=== PATIENT | female | born 1980 | race Caucasian/White ===

== ENCOUNTER 2016-05-14 16:49 | Emergency (ER) | payer SELFPAY ==
--- NOTE | 2016-05-21 21:19 | ER ---
ADMIT: 05/14/2016 RM/LOC: ER [facility] MR#: [id number] [address] [id number] JOSEPH SOTO [address] [place] [address] Emergency Room Report SEX: F AGE: 35 : 1980 DATE: 05/14/2016 ADDENDUM: CHIEF COMPLAINT: Low back pain. HISTORY OF PRESENT ILLNESS: This is a 35-year-old female that used to work for [employer] She hurt her back about a year ago, has intermittent pain off and on. Usually, she says she does okay, but then she has episodes where it is very difficult for her walk. COURSE IN THE EMERGENCY ROOM: I am giving her Toradol and Valium. I am sending her home with just 8 of tramadol. She usually has this prescribed by Dr. Mckinley, but she only has 2 left, so I told her I just gave her enough to until she can get it refilled by Dr. Mckinley. CLINICAL IMPRESSION: Acute on chronic low back pain. REDDY Mae / Joseph Small MD / rita JOB #: [id number] CC: Joseph Small MD, Attending Physician Darnell Mckinley MD, Family Physician
== END 2016-05-14 18:30 | disposition home or self-care (01) ==
LOC: ER 16:49
DX: M54.5 Low back pain (principal); G89.29 Other chronic pain; J45.909 Unspecified asthma, uncomplicated; Z88.0 Allergy status to penicillin; Z88.1 Allergy status to other antibiotic agents; Z88.8 Allergy status to other drugs, medicaments and biological substances; Z79.899 Other long term (current) drug therapy

== ENCOUNTER 2016-07-24 09:08 | Day surgery (SDC) | payer BC, MEDICAID ==
--- NOTE | 2016-07-26 08:19 | OR ---
ADMIT: 07/24/2016 RM/LOC: [facility] MR#: [id number] [address] [address] ARRIETAMIKIE LAMBS [address] [place], [place] [id number] Operative/Delivery Room Report SEX: F AGE: 36 : 1980 SURGERY DATE: 07/24/2016 SURGEON: Luis Robb MD PREOPERATIVE DIAGNOSES: 1. Cervical spondylosis. 2. Chronic daily headaches. 3. Cervicalgia. POSTOPERATIVE DIAGNOSES: 1. Cervical spondylosis. 2. Chronic daily headaches. 3. Cervicalgia. OPERATION: Left C2, C3, C4, and C5 medial branch block. INDICATION FOR PROCEDURE: The patient is a pleasant female with history of chronic neck pain with headaches and shoulder pain secondary to above- mentioned diagnosis comes here for planned bilateral C2, C3, C4, and C5 cervical medial branch block. We did only left-sided medial branch block as the patient could not tolerate the procedure. ANESTHESIA: Local without sedation. ESTIMATED BLOOD LOSS: Zero. COMPLICATIONS: None. DESCRIPTION OF PROCEDURE: After the patient was seen in the preoperative area, vital signs were taken prior to procedure. The risks, benefits, and alternative therapies were discussed at length. The patient comes in, consent ADMIT: 07/24/2016 RM/LOC: [facility] MR#: [id number] [id number] [address] ARRIETAMIKIE LAMBS [address] [place] [address] Operative/Delivery Room Report SEX: F AGE: 36 : 1980 is obtained and updated. The patient was taken to the fluoroscopy suite and placed on the fluoroscopic table in the prone position. Pressure points were padded to comfort, monitor applied, and a timeout performed. The patient's jaw was turned to the right side. The patient was monitored throughout the procedure. The patient's cervical area was then prepped and draped in a sterile fashion using ChloraPrep. Fluoroscopy was then brought in to identify C2-C3 junction, C3 waist, C4 waist, and C5 waist. Made contact with C2-C3 junction, C3 waist, C4 waist, and C5 waist. Isovue-300 was used to confirm the placement. Then I injected 2 mL solution consisting of 10 mg of dexamethasone with 0.25% Bupivacaine distributed at each level. On examination 10 minutes after the procedure, the patient had 80% pain relief, and range of motion was full at the neck. Luis Robb MD/ rita JOB #: [id number] CC: Luis Robb, Attending Physician Darnell Mckinley, Family Physician
== END 2016-07-24 11:05 | disposition home or self-care (01) ==
LOC: SSS 09:08
DX: G89.29 Other chronic pain (principal); M47.812 Spondylosis without myelopathy or radiculopathy, cervical region; M50.20 Other cervical disc displacement, unspecified cervical region; M54.16 Radiculopathy, lumbar region; M51.37 Other intervertebral disc degeneration, lumbosacral region; Z88.0 Allergy status to penicillin; Z79.891 Long term (current) use of opiate analgesic; Z79.899 Other long term (current) drug therapy; Z88.8 Allergy status to other drugs, medicaments and biological substances